=== PATIENT | male | born 1965 | race Two or more races ===

== ENCOUNTER 2022-10-27 08:57 | Inpatient (IN) | payer BC, OTHER ==
[~2022-10-27] VITALS: Ht 172.7 cm; Wt 105.8 kg
[2022-10-27] MEDS ORDERED: ASPirin 325 MG TAB PO ONE (09:00)
[2022-10-27] MEDS ORDERED: NITROGLYCERIN 0.4 MG SL TAB SL ONE (09:00)
[2022-10-27 09:28] LABS: Basophils # (auto) 0 10 ^3/uL (0-0.2); Basophils % (auto) 0.6 % (0.0-2.0); Eosinophils # (auto) 0.4 10 ^3/uL (0-0.8); Eosinophils % (auto) 4.8 % (0.0-7.0); Hemoglobin 14.9 g/dL (13.5-17.5); Lymphocytes # (auto) 2.6 10 ^3/uL (0.4-5.4); Lymphocytes % (auto) 31.8 % (10.0-50.0); Mean Corpuscular Hemoglobin 30.4 pg (28.0-32.0); Mean Corpuscular Hgb Conc. 33.9 g/dL (32.0-36.0); Mean Corpuscular Volume 89.7 fL (80.0-100.0); Monocytes # (auto) 0.7 10 ^3/uL (0-1.3); Monocytes % (auto) 8.6 % (0.0-12.0); Neutrophils # (auto) 4.5 10 ^3/uL (1.6-8.6); Neutrophils % (auto) 54.2 % (37.0-80.0); Nucleated Red Blood Cells % 0.1 %; Red Cell Distribution Width 12.9 % (11.8-14.3); White Blood Cell 8.2 10^3/uL (4.4-10.8)
[2022-10-27 09:56] LABS: Albumin 4.4 g/dL (3.4-5.0); Calcium 9.1 mg/dL (8.5-10.1); Potassium 4.5 mmol/L (3.5-5.1)
[2022-10-27 10:00] LABS: BUN/Creatinine Ratio 17.9 (10.0-20.0); Bilirubin, Total 0.6 mg/dL (0.2-1.0); Total Protein 7.2 g/dL (6.4-8.2)
[2022-10-27 13:03] LABS: Urine Bacteria NONE SEEN /hpf (None Seen); Urine Blood Negative /uL (Negative); Urine Clarity Clear (Clear); Urine Color Yellow (Yellow); Urine Protein, UAD Negative (Negative); Urine Specific Gravity 1.014 (1.001-1.035); Urine Urobilinogen Normal (Negative); Urine WBC <1 /hpf (0 - 3); Urine pH 5.5 (5.0-8.0)
[2022-10-27] MEDS ORDERED: DOCUSATE SOD 100 MG CAP PO PRN (14:30)
[2022-10-27] MEDS ORDERED: MORPHINE SULFATE INJ 2 MG/ml SYRG IV PRN (14:30)
[2022-10-27] MEDS ORDERED: HYDROcodone-ACET 5/325MG TAB PO PRN (14:30)
[2022-10-27] MEDS ORDERED: NITROGLYCERIN 0.4 MG SL TAB SL PRN (14:30)
[2022-10-27] MEDS ORDERED: ACETAMINOPHEN 325 MG TAB PO PRN (14:30)
[2022-10-27] MEDS ORDERED: ONDANSETRON HCL 4 MG/2 ML VIAL IV PRN (14:30)
[2022-10-27] MEDS ORDERED: LOSA50TA46 PO (14:36)
[2022-10-27 15:05] VITALS: PULSE 83; RESP 19; O2SAT 95
[2022-10-27] MEDS: SODIUM CHLORIDE 0.9% 1,000 ML IV SCH (15:25)
[2022-10-27 19:50] VITALS: PULSE 95; RESP 23; O2SAT 92
[2022-10-27] MEDS: LOSARTAN POTASSIUM 50 MG TAB PO SCH (22:42)
[2022-10-28] VITALS (10 sets, daily range): BP systolic 117–163; BP diastolic 69–107; PULSE 75–95; RESP 17–18; TEMP 97.6–98.2; O2SAT 94–96
[2022-10-28] MEDS: SODIUM CHLORIDE 0.9% 1,000 ML IV SCH (04:48)
[2022-10-28 06:13] LABS: INR 1.04 (0.9-1.15); Partial Thromboplastin Time 29.8 SEC (24.5-34.5); Prothrombin Time 10.9 sec (9.3-11.8)
[2022-10-28 06:27] LABS: Potassium 4.3 mmol/L (3.5-5.1)
[2022-10-28 06:30] LABS: Basophils # (auto) 0.1 10 ^3/uL (0-0.2); Basophils % (auto) 0.8 % (0.0-2.0); Eosinophils # (auto) 0.3 10 ^3/uL (0-0.8); Eosinophils % (auto) 5.1 % (0.0-7.0); Hematocrit 43.5 % (41.0-53.0); Hemoglobin 14.4 g/dL (13.5-17.5); Lymphocytes # (auto) 1.9 10 ^3/uL (0.4-5.4); Lymphocytes % (auto) 29.1 % (10.0-50.0); Mean Corpuscular Hemoglobin 30.2 pg (28.0-32.0); Mean Corpuscular Hgb Conc. 33.2 g/dL (32.0-36.0); Mean Corpuscular Volume 90.9 fL (80.0-100.0); Monocytes # (auto) 0.6 10 ^3/uL (0-1.3); Monocytes % (auto) 8.6 % (0.0-12.0); Neutrophils # (auto) 3.7 10 ^3/uL (1.6-8.6); Neutrophils % (auto) 56.4 % (37.0-80.0); Nucleated Red Blood Cells % 0.1 %; Red Blood Cells 4.79 10^6/uL (4.5-5.90); White Blood Cell 6.5 10^3/uL (4.4-10.8)
[2022-10-28 06:46] LABS: Albumin 3.6 g/dL (3.4-5.0); Bilirubin, Total 0.7 mg/dL (0.2-1.0); Calcium 8.8 mg/dL (8.5-10.1); Total Protein 6.6 g/dL (6.4-8.2)
[2022-10-28] MEDS: LOSARTAN POTASSIUM 50 MG TAB PO SCH ×3 (10:00→21:54)
[2022-10-28] MEDS ORDERED: ATORVASTATIN 20 MG TAB PO SCH (22:00)
[2022-10-29] VITALS (19 sets, daily range): BP systolic 109–155; BP diastolic 72–107; PULSE 69–101; RESP 12–20; TEMP 97.8–98.4; O2SAT 92–99
[2022-10-29 05:41] LABS: Basophils # (auto) 0.1 10 ^3/uL (0-0.2); Basophils % (auto) 0.9 % (0.0-2.0); Eosinophils # (auto) 0.3 10 ^3/uL (0-0.8); Eosinophils % (auto) 3.7 % (0.0-7.0); Hematocrit 44.5 % (41.0-53.0); Hemoglobin 14.9 g/dL (13.5-17.5); Lymphocytes # (auto) 2.2 10 ^3/uL (0.4-5.4); Lymphocytes % (auto) 28.2 % (10.0-50.0); Mean Corpuscular Hemoglobin 30.3 pg (28.0-32.0); Mean Corpuscular Hgb Conc. 33.5 g/dL (32.0-36.0); Mean Corpuscular Volume 90.3 fL (80.0-100.0); Monocytes # (auto) 0.7 10 ^3/uL (0-1.3); Monocytes % (auto) 8.5 % (0.0-12.0); Neutrophils # (auto) 4.5 10 ^3/uL (1.6-8.6); Neutrophils % (auto) 58.7 % (37.0-80.0); Red Blood Cells 4.93 10^6/uL (4.5-5.90); Red Cell Distribution Width 13.4 % (11.8-14.3); White Blood Cell 7.7 10^3/uL (4.4-10.8)
[2022-10-29 06:02] LABS: BUN/Creatinine Ratio 19.8 (10.0-20.0); Calcium 9.1 mg/dL (8.5-10.1); Potassium 4.1 mmol/L (3.5-5.1)
[2022-10-29] MEDS ORDERED: ADENOSINE 88 MG in GIVE UN-DILUTED 0 ML IV ONE (08:00)
[2022-10-29] MEDS ORDERED: PANTOPRAZOLE 40 MG/10 ML VIAL INJ IV SCH (10:00)
[2022-10-29] MEDS ORDERED: HCTZ 25 MG TAB PO SCH (10:00)
[2022-10-29] MEDS: ASPirin 81 mg TAB PO SCH (10:12)
[2022-10-29] MEDS: LOSARTAN POTASSIUM 50 MG TAB PO SCH (10:14)
[2022-10-29] MEDS ORDERED: LIDOCAINE 2%HCL (LOCAL ANESTH.) INJ 20ML MDV ONE (13:06)
[2022-10-29] MEDS ORDERED: IODIXANOL 320MG/ML 100ML BTL IV ONE (13:07)
[2022-10-29] MEDS ORDERED: MIDAZOLAM HCL 2MG/2ML 2ml VIAL (1mg/ml) ONE (13:17)
[2022-10-29] MEDS ORDERED: fentaNYL CITRATE 100 MCG/2 ML VL ONE (13:17)
[2022-10-29] MEDS ORDERED: VERAPAMIL 2.5MG/ML INJ 2ML VIAL IV ONE (13:17)
[2022-10-29] MEDS ORDERED: HEPARIN SODIUM (PORCINE) 5000 UNITS/ML 1ML VIAL ONE ×2 (13:35→13:47)
[2022-10-29] MEDS ORDERED: ceFAZolin 1GM/50ML 50 ML IV ONE (13:53)
[2022-10-29] MEDS ORDERED: HEPARIN SODIUM (PORCINE) 5000 UNITS/ML 1ML VIAL IV ONE (14:30)
[2022-10-29 16:17] LABS: INR 1.04 (0.9-1.15); Partial Thromboplastin Time 37.5 SEC (24.5-34.5); Prothrombin Time 10.9 sec (9.3-11.8)
[2022-10-29] MEDS: PANTOPRAZOLE 40 MG TAB PO SCH (17:12)
[2022-10-29] MEDS ORDERED: HEPARIN DRIP/D5W 100UNITS/ML 250 ML IV SCH (20:00)
[2022-10-29] MEDS: METOPROLOL TARTRATE 25 MG TAB PO SCH (21:32)
[2022-10-29] MEDS ORDERED: ATORVASTATIN 20 MG TAB PO SCH (22:00)
[2022-10-30] VITALS (7 sets, daily range): BP systolic 104–124; BP diastolic 67–99; PULSE 62–81; RESP 17–20; TEMP 97.5–98.1; O2SAT 92–97
[2022-10-30 03:52] LABS: INR 1.04 (0.9-1.15); Partial Thromboplastin Time 44.7 SEC (24.5-34.5); Prothrombin Time 10.9 sec (9.3-11.8)
[2022-10-30] MEDS ORDERED: HEPARIN DRIP/D5W 100UNITS/ML 250 ML IV SCH ×2 (04:00→11:00)
[2022-10-30 05:24] LABS: Calcium 9.3 mg/dL (8.5-10.1)
[2022-10-30 05:27] LABS: BUN/Creatinine Ratio 20.9 (10.0-20.0)
[2022-10-30] MEDS ORDERED: ATORVASTATIN 20 MG TAB PO SCH (07:45)
[2022-10-30 07:51] LABS: Basophils # (auto) 0.1 10 ^3/uL (0-0.2); Eosinophils # (auto) 0.2 10 ^3/uL (0-0.8); Eosinophils % (auto) 1.9 % (0.0-7.0); Hematocrit 45.8 % (41.0-53.0); Hemoglobin 15.4 g/dL (13.5-17.5); Lymphocytes # (auto) 2.3 10 ^3/uL (0.4-5.4); Lymphocytes % (auto) 25.5 % (10.0-50.0); Mean Corpuscular Hemoglobin 30.4 pg (28.0-32.0); Mean Corpuscular Hgb Conc. 33.6 g/dL (32.0-36.0); Mean Corpuscular Volume 90.5 fL (80.0-100.0); Monocytes # (auto) 0.8 10 ^3/uL (0-1.3); Monocytes % (auto) 8.7 % (0.0-12.0); Neutrophils # (auto) 5.7 10 ^3/uL (1.6-8.6); Neutrophils % (auto) 62.9 % (37.0-80.0); Nucleated Red Blood Cells % 0.2 %; Red Blood Cells 5.06 10^6/uL (4.5-5.90); White Blood Cell 9.1 10^3/uL (4.4-10.8)
[2022-10-30] MEDS: ASPirin 81 mg TAB PO SCH (10:03)
[2022-10-30] MEDS: METOPROLOL TARTRATE 25 MG TAB PO SCH ×2 (10:03→23:11)
[2022-10-30] MEDS: PANTOPRAZOLE 40 MG TAB PO SCH (10:04)
[2022-10-30] MEDS: LOSARTAN POTASSIUM 50 MG TAB PO SCH (10:04)
[2022-10-30] MEDS: HCTZ 25 MG TAB PO SCH (10:04)
[2022-10-30 10:50] LABS: INR 1.04 (0.9-1.15); Partial Thromboplastin Time 48.8 SEC (24.5-34.5); Prothrombin Time 10.9 sec (9.3-11.8)
[2022-10-30 17:52] LABS: INR 1.07 (0.9-1.15); Prothrombin Time 11.2 sec (9.3-11.8)
[2022-10-30 18:21] LABS: Partial Thromboplastin Time 71.2 SEC (24.5-34.5)
[2022-10-30] MEDS: ATORVASTATIN 20 MG TAB PO SCH (23:12)
[2022-10-30 23:36] LABS: INR 1.07 (0.9-1.15); Prothrombin Time 11.2 sec (9.3-11.8)
[2022-10-30 23:40] LABS: Partial Thromboplastin Time 79.4 SEC (24.5-34.5)
[2022-10-31] VITALS (8 sets, daily range): BP systolic 104–120; BP diastolic 71–84; PULSE 63–71; RESP 17–18; TEMP 97.5–98.2; O2SAT 93–98
[2022-10-31] MEDS ORDERED: HEPARIN DRIP/D5W 100UNITS/ML 250 ML IV SCH ×3 (00:15→16:45)
[2022-10-31 06:44] LABS: INR 1.03 (0.9-1.15); Prothrombin Time 10.8 sec (9.3-11.8)
[2022-10-31 07:46] LABS: Partial Thromboplastin Time 80.3 SEC (24.5-34.5)
[2022-10-31] MEDS: HCTZ 25 MG TAB PO SCH (09:42)
[2022-10-31] MEDS: PANTOPRAZOLE 40 MG TAB PO SCH (09:43)
[2022-10-31] MEDS: LOSARTAN POTASSIUM 50 MG TAB PO SCH (09:43)
[2022-10-31] MEDS: ASPirin 81 mg TAB PO SCH (09:43)
[2022-10-31] MEDS: METOPROLOL TARTRATE 25 MG TAB PO SCH ×2 (09:43→21:30)
[2022-10-31 15:26] LABS: INR 1.04 (0.9-1.15); Partial Thromboplastin Time 47.1 SEC (24.5-34.5); Prothrombin Time 10.9 sec (9.3-11.8)
[2022-10-31] MEDS: ATORVASTATIN 20 MG TAB PO SCH (21:29)
[2022-11-01] MEDS ORDERED: LOSARTAN POTASSIUM 50 MG TAB PO SCH (10:00)
== END 2022-10-31 22:30 | disposition short-term general hospital (02) | DRG 287 ==
LOC: ER 08:57 → TELE 14:36 → TELE-CENTR 10-28 03:15
PROVIDERS: ADMIT Internal Medicine Pulmonary Disease
PROC: 4A023N7 Measurement of Cardiac Sampling and Pressure, Left Heart, Percutaneous Approach (ICD-10-PCS; principal; 2022-10-29)
PROC: B211YZZ Fluoroscopy of Multiple Coronary Arteries using Other Contrast (ICD-10-PCS; 2022-10-29)
PROC: B215YZZ Fluoroscopy of Left Heart using Other Contrast (ICD-10-PCS; 2022-10-29)
PROC: 4A033BC Measurement of Arterial Pressure, Coronary, Percutaneous Approach (ICD-10-PCS; 2022-10-29)
PROC: B41FYZZ Fluoroscopy of Right Lower Extremity Arteries using Other Contrast (ICD-10-PCS; 2022-10-29)
DX: I25.110 Atherosclerotic heart disease of native coronary artery with unstable angina pectoris (principal); K21.9 Gastro-esophageal reflux disease without esophagitis; I10 Essential (primary) hypertension; F10.20 Alcohol dependence, uncomplicated; Z96.659 Presence of unspecified artificial knee joint; E78.5 Hyperlipidemia, unspecified; E66.9 Obesity, unspecified; Z79.899 Other long term (current) drug therapy; Z82.49 Family history of ischemic heart disease and other diseases of the circulatory system; Z79.82 Long term (current) use of aspirin; R73.03 Prediabetes; Z68.35 Body mass index [BMI] 35.0-35.9, adult
CPT/HCPCS: 36415; 71045; 78452; 80048; 80053; 80061; 81001; 83036; 83880; 84443; 84484; 85025; 85379; 85610; 85730; 86850; 86900; 86901; 93005; 93017; 93306; 99152; 99153; G0378; J0153; J0690; J2250; Q9967

== ENCOUNTER 2023-05-18 09:02 | Emergency (ER) | payer BC ==
[~2023-05-18] VITALS: Ht 172.7 cm; Wt 78.0 kg
[~2023-05-18 09:02] MED LIST: LOSA50TA46 PO
[2023-05-18] MEDS: methylPREDNISolone SOD SUCC 125 MG/2 ML VL IM ONE (09:25)
[2023-05-18] MEDS: HYDROcodone-ACET 10/325MG TAB PO ONE (09:42)
[2023-05-18 09:45] VITALS: BP 147/97; PULSE 69; RESP 18; TEMP 98.7; O2SAT 98
[2023-05-18] MEDS ORDERED: PRED20TA2 PO (09:59)
[2023-05-18] MEDS ORDERED: HYDR-4902 PO (09:59)
[2023-05-27] MEDS ORDERED: PRED10TA PO (08:13)
[2023-05-27] MEDS ORDERED: PANT40TA2 PO (08:13)
== END 2023-05-18 10:05 | disposition home or self-care (01) ==
LOC: ER 09:02 → EEVIPCON 09:02 → ER 10:05
DX: R09.1 Pleurisy (principal); I10 Essential (primary) hypertension; Z98.890 Other specified postprocedural states; Z79.899 Other long term (current) drug therapy
CPT/HCPCS: 71045; 96372; 99283; J2930

== ENCOUNTER → 2023-07-09 | Outpatient (CLI) | payer BC ==
[~2023-07-09] MED LIST changes: +HYDR-4902 PO; +LOSA-534 PO; -LOSA50TA46 PO; +PANT40TA2 PO; +PRED10TA PO; +PRED20TA2 PO
== END | disposition home or self-care (01) ==
LOC: XYW 12:42
PROVIDERS: ATTEND Student in an Organized Health Care Education/Training Program
DX: I50.42 Chronic combined systolic (congestive) and diastolic (congestive) heart failure (principal)
CPT/HCPCS: 93306

== ENCOUNTER → 2023-07-16 | Outpatient (CLI) | payer BC ==
[2023-07-16 06:33] LABS: Basophils # (auto) 0.1 10 ^3/uL (0-0.2); Basophils % (auto) 0.9 % (0.0-2.0); Eosinophils # (auto) 0.5 10 ^3/uL (0-0.8); Eosinophils % (auto) 5.2 % (0.0-7.0); Hematocrit 42.2 % (41.0-53.0); Hemoglobin 13.9 g/dL (13.5-17.5); Lymphocytes # (auto) 2.3 10 ^3/uL (0.4-5.4); Lymphocytes % (auto) 26.7 % (10.0-50.0); Mean Corpuscular Hemoglobin 28.5 pg (28.0-32.0); Mean Corpuscular Hgb Conc. 32.9 g/dL (32.0-36.0); Mean Corpuscular Volume 86.5 fL (80.0-100.0); Monocytes # (auto) 0.8 10 ^3/uL (0-1.3); Monocytes % (auto) 9.3 % (0.0-12.0); Neutrophils % (auto) 57.9 % (37.0-80.0); Nucleated Red Blood Cells % 0.1 %; Red Blood Cells 4.88 10^6/uL (4.5-5.90); Red Cell Distribution Width 14.7 % (11.8-14.3); White Blood Cell 8.6 10^3/uL (4.4-10.8)
[2023-07-16 07:35] LABS: Alanine Aminotransferase 26 U/L (7-40); Albumin 4.7 g/dL (3.2-4.8); Alkaline Phosphatase 46 U/L (46-116); Anion Gap 7 (5-15); Aspartate Aminotransferase 19 U/L (13-40); BUN/Creatinine Ratio 19.7 (10.0-20.0); Bilirubin, Total 0.8 mg/dL (0.2-1.0); Blood Urea Nitrogen 23 mg/dL (9-23); Calcium 10.1 mg/dL (8.7-10.4); Carbon Dioxide 26 mmol/L (20-30); Chloride 105 mmol/L (98-107); Glucose 110 mg/dL (74-106); Potassium 4.2 mmol/L (3.5-5.1); Sodium 138 mmol/L (136-145)
[2023-07-16 07:58] LABS: Triglycerides 93 mg/dL (< 150)
[2023-07-16 07:59] LABS: LDL Cholesterol 81 mg/dL (< 100)
[2023-07-16 08:00] LABS: Bilirubin, Direct 0.2 mg/dL (<0.3); Cholesterol 164 mg/dL (< 200); HDL Cholesterol 67 mg/dL (40-59)
== END | disposition home or self-care (01) ==
LOC: LAB 06:07
PROVIDERS: ATTEND Student in an Organized Health Care Education/Training Program
DX: I25.810 Atherosclerosis of coronary artery bypass graft(s) without angina pectoris (principal); E78.5 Hyperlipidemia, unspecified; I25.9 Chronic ischemic heart disease, unspecified; I11.9 Hypertensive heart disease without heart failure
CPT/HCPCS: 36415; 80053; 80061; 80076; 83880; 84443; 85025

== ENCOUNTER 2025-02-27 06:49 | Day surgery (SDC) | payer BC ==
[2025-02-24 10:38] LABS: Hematocrit 42.2 % (41.0-53.0); Hemoglobin 14.3 g/dL (13.5-17.5); Mean Corpuscular Hemoglobin 30.0 pg (28.0-32.0); Mean Corpuscular Volume 88.5 fL (80.0-100.0); Nucleated Red Blood Cells % 0.0 %
[2025-02-24 10:44] LABS: Urine Protein, UAD Negative (Negative)
[2025-02-24 10:50] LABS: INR 1.0 (0.9-1.15); Partial Thromboplastin Time 27.6 SEC (24.5-34.5); Prothrombin Time 10.6 sec (9.3-11.8)
[2025-02-24 10:54] LABS: Alanine Aminotransferase 29 U/L (7-40); Albumin 4.5 g/dL (3.2-4.8); Alkaline Phosphatase 71 U/L (46-116); Anion Gap 9 (5-15); BUN/Creatinine Ratio 16.5 (10.0-20.0); Blood Urea Nitrogen 17 mg/dL (9-23); Calcium 9.6 mg/dL (8.7-10.4); Carbon Dioxide 29 mmol/L (20-31); Chloride 101 mmol/L (98-107); Glucose 87 mg/dL (74-106); Potassium 4.2 mmol/L (3.5-5.1); Sodium 139 mmol/L (136-145); Total Protein 7.0 g/dL (5.7-8.2)
[2025-02-24 10:55] LABS: Bilirubin, Total 0.7 mg/dL (0.2-1.0)
[~2025-02-27] VITALS: Ht 172.7 cm; Wt 90.7 kg
[~2025-02-27 06:49] MED LIST changes: +ATOR80TA PO; -HYDR-4902 PO; -LOSA-534 PO; +METO25TA5 PO; -PANT40TA2 PO; -PRED10TA PO; -PRED20TA2 PO
[2025-02-27] MEDS ORDERED: PROPOFOL 10 MG/ML 20 ML IV ONE (06:50)
[2025-02-27] MEDS ORDERED: FENTANYL 100mcg/2mL SYRINGE IM ONE (06:50)
[2025-02-27] MEDS ORDERED: ceFAZolin 2 GM/D5W50ml 50 ML IV ONE (07:35)
[2025-02-27] MEDS: BUPIVACAINE 0.5% P/F INJ 10 ML VIAL ONE (09:19)
[2025-02-27] MEDS: LIDOCAINE 1% HCL (LOCAL ANESTH.) INJ 20ML MDV ONE (09:19)
[2025-02-27 09:34] VITALS: PULSE 79; RESP 12; TEMP 98.7; O2SAT 98
[2025-02-27] MEDS ORDERED: HYDROmorphone HCL 2 MG/ML VL/or syr IV PRN (10:00)
[2025-02-27] MEDS ORDERED: ONDANSETRON HCL 4 MG/2 ML VIAL IV PRN (10:00)
[2025-02-27] MEDS ORDERED: MORPHINE SULFATE 4 MG/ML SYR/VIAL IV PRN (10:00)
[2025-02-27] MEDS ORDERED: KETOROLAC TROMETH 30 MG/ML 1ML VIAL IV ONE (10:00)
[2025-02-27] MEDS ORDERED: hydrALAZINE HCL 20 MG/ML VL IV PRN (10:00)
[2025-02-27] MEDS ORDERED: MIDAZOLAM HCL 2MG/2ML 2ml VIAL (1mg/ml) IV PRN (10:00)
[2025-02-27 10:30] VITALS: BP 140/97; PULSE 81; RESP 16; O2SAT 96
--- NOTE | 2025-03-03 08:51 | DVHOP2 ---
Operative Report - 2 Report Details Date: 02/27/25 Preop Diagnosis: Right small trigger finger Postop Diagnosis: Right small trigger finger Surgeon: Derek Coughlin MD Consumer Educator: Vaughn MATHIS Anesthesiologist: SELVIN Anesthesia: Mac, Local Consent: The patient was informed of the risks and benefits of the procedure. These include but are not limited to complications of anesthesia, postoperative infection, incomplete relief of symptoms, recurrence of symptoms, damage to blood vessels, nerves and tendons, deep venous thrombosis, pulmonary embolism and possible need for repeat surgery in the future. Estimated Blood Loss: 5 cc Name of Procedure Performed Right small trigger finger release, flexor tendon synovectomy Procedure Details Procedure Details: The patient was brought to the operating room and placed supine on the operating table. The right upper extremity was positioned on an arm board and prepped and draped in the usual sterile fashion. A digital tourniquet was applied to the base of the right small finger. A longitudinal incision approximately 1 cm in length was made over the A1 carito at the level of the metacarpophalangeal (MCP) joint of the right small finger. Dissection was carried through the subcutaneous tissue, taking care to protect the digital neurovascular bundles. The A1 carito was identified and incised longitudinally. The flexor tendons were visualized and found to have a nodule which was debrided with synovectomy and found to glide freely without evidence of further triggering or catching. No additional pathology was noted. The wound was irrigated with sterile saline. Hemostasis was achieved. The skin was closed with interrupted nylon sutures. A sterile dressing was applied. The patient tolerated the procedure well and was transferred to the recovery area in stable condition. Condition Good Disposition Home DEREK COUGHLIN MD Mar 03, 2025 08:51
== END 2025-02-27 10:44 | disposition home or self-care (01) ==
LOC: SUR 06:49
PROVIDERS: ATTEND Orthopaedic Surgery Adult Reconstructive Orthopaedic Surgery
DX: M65.351 Trigger finger, right little finger (principal); Z79.899 Other long term (current) drug therapy; Z95.1 Presence of aortocoronary bypass graft; Z98.890 Other specified postprocedural states
CPT/HCPCS: 26055; 36415; 80053; 81001; 85025; 85610; 85730; A6450; J0690; J2003; J2704; J3010; J3490; J1100